=== PATIENT | male | born 1995 | race Caucasian/White ===

== ENCOUNTER 2017-12-28 22:25 | Emergency (ER) | payer BC ==
[~2017-12-28] VITALS: Ht 175.3 cm; Wt 70.1 kg
[2017-12-28] MEDS ORDERED: FLUORESCEIN 1MG EYE STRIP. ONE (22:48)
[2017-12-28] MEDS ORDERED: TETRACAINE 0.5% OPHTH SOLUTION 4ML BOTTLE. ONE (22:48)
[2017-12-28] MEDS ORDERED: FLUORESCEIN 1MG EYE STRIP. OD ONE (23:00)
[2017-12-28] MEDS ORDERED: TETRACAINE 0.5% OPHTH SOLUTION 4ML BOTTLE. OD ONE (23:00)
[2017-12-28 23:20] VITALS: BP 133/68
--- NOTE | 2017-12-29 02:10 | PHYS DOC ---
Past History Past Medical History: No Pertinent History Past Surgical History: No Surgical History Alcohol Use: None Drug Use: None Adult General Chief Complaint Chief Complaint: EYE PROBLEMS HPI HPI 22-year-old male presents with right eye pain. The patient works for a local [employer] and was reaching for a coaxial cable when it slipped from his hand and struck him in the right eye. This occurred 4 hours ago. He continues to have some irritation and is concerned about corneal abrasion. He denies blurred vision or discharge from the eyes. He denies any other injuries or complaints. Review of Systems Review of Systems Constitutional: Denies fever or chills [] Eyes: Erythematous right eye[] HENT: Denies nasal congestion or sore throat [] Respiratory: Denies cough or shortness of breath [] Cardiovascular: No additional information not addressed in HPI [] GI: Denies abdominal pain, nausea, vomiting, bloody stools or diarrhea [] : Denies dysuria or hematuria [] Musculoskeletal: Denies back pain or joint pain [] Integument: Denies rash or skin lesions [] Neurologic: Denies headache, focal weakness or sensory changes [] Endocrine: Denies polyuria or polydipsia [] All other systems were reviewed and found to be within normal limits, except as documented in this note. Current Medications Current Medications Current Medications Medications (Trade) Dose Ordered Sig/Geovanni Start Time Stop Time Status Last Admin Dose Admin Fluorescein Sodium (Ful-Maria Teresa 1mg) 1 strip STK-MED ONCE 12/28/17 22:48 12/28/17 22:49 DC Tetracaine HCl (Tetracaine) 40 drop STK-MED ONCE 12/28/17 22:48 12/28/17 22:49 DC Allergies Allergies Allergies Coded Allergies Type Severity Reaction Last Updated Verified No Known Drug Allergies 08/03/16 No Physical Exam Physical Exam Constitutional: Well developed, well nourished, no acute distress, non-toxic appearance. [] HENT: Normocephalic, atraumatic, bilateral external ears normal, oropharynx moist, no oral exudates, nose normal. [] Eyes: PERRLA, EOMI, conjunctiva injected right eye[] Neck: Normal range of motion, no tenderness, supple, no stridor. [] Cardiovascular:Heart rate regular rhythm, no murmur [] Lungs & Thorax: Bilateral breath sounds clear to auscultation [] Abdomen: Bowel sounds normal, soft, no tenderness, no masses, no pulsatile masses. [] Skin: Warm, dry, no erythema, no rash. [] Back: No tenderness, no CVA tenderness. [] Extremities: No tenderness, no cyanosis, no clubbing, ROM intact, no edema. [] Neurologic: Alert and oriented X 3, normal motor function, normal sensory function, no focal deficits noted. [] Psychologic: Affect normal, judgement normal, mood normal. [] Current Patient Data Vital Signs Vital Signs Date Time Temp Pulse Resp B/P (MAP) Pulse Ox O2 Delivery O2 Flow Rate FiO2 12/28/17 23:20 76 16 133/68 (89) 100 Room Air 12/28/17 22:25 97.9 EKG EKG [] Radiology/Procedures Radiology/Procedures [] Course & Med Decision Making Course & Med Decision Making Pertinent Labs and Imaging studies reviewed. (See chart for details) Fluorescein dye and wood lamp exam did not show any unusual uptake. There is no evidence of corneal abrasion or foreign body. I have advised the patient to refrain from rubbing his eye. He should also get some rest and it should improve by morning. [] Dragon Disclaimer Dragon Disclaimer This electronic medical record was generated, in whole or in part, using a voice recognition dictation system. Departure Departure: Impression: Primary Impression: Pain, eye, right Disposition: 01 HOME, SELF-CARE Condition: STABLE BOZENA MARK DO Dec 29, 2017 02:10
== END 2017-12-28 23:35 | disposition home or self-care (01) ==
LOC: ER 22:25
DX: H57.11 Ocular pain, right eye (principal); H57.8 Other specified disorders of eye and adnexa; W22.8XXA Striking against or struck by other objects, initial encounter; Y93.89 Activity, other specified; Y99.8 Other external cause status; Y92.89 Other specified places as the place of occurrence of the external cause
CPT/HCPCS: 99283